=== PATIENT | female | born 1990 | race Two or more races ===

== ENCOUNTER 2022-10-05 09:47 | Inpatient (IN) | payer OTHER ==
[2022-10-05] MEDS ORDERED: OXYTOCIN 30 UNITS in 0.9% NS 30 UNIT/500 ML INFUS.BAG IVPB SCH ×2 (10:30→10:45)
[2022-10-05] MEDS ORDERED: OXYTOCIN 30 UNITS in 0.9% NS 30 UNIT/500 ML INFUS.BAG IVPB ONE (11:04)
[2022-10-05 11:13] LABS: BASO % 0.2 % (0-2.0); EOS % 1.4 % (0-4.5); HEMATOCRIT 35.5 % (32.4-45.2); HEMOGLOBIN 12.4 GM/dL (10.7-15.3); LYMPH % 26.9 % (8-40); MCH 31.5 pg (25.7-33.7); MCHC 34.8 g/dl (32.0-36.0); MEAN CELL VOLUME 90.4 fl (80-96); MEAN PLT VOLUME 6.6 fl (7.5-11.1); MONO % 5.9 % (3.8-10.2); NEUT % 65.6 % (42.8-82.8); PLATELET COUNT 290 10^3/uL (134-434); RBC 3.93 M/mm3 (3.60-5.2); RDW 13.6 % (11.6-15.6)
[2022-10-05] MEDS: ELECTROLYTE-148 SOLN 1,000 ML IV SCH ×2 (11:15→14:29)
[2022-10-05 11:18] LABS: INR 0.9 (0.83-1.09); PROTHROMBIN TIME (PATIENT) 10.4 SEC (9.7-13.0)
[2022-10-05 11:20] LABS: ACTIVATED PTT 24.6 SECONDS (25.2-36.5)
[2022-10-05 11:37] LABS: CALCIUM 9.2 mg/dL (8.5-10.1)
[2022-10-05 11:38] LABS: BLOOD UREA NITROGEN 9.6 mg/dL (7-18)
[2022-10-05 11:39] VITALS: BMI 25.4
[2022-10-05 11:41] LABS: CREATININE 0.5 mg/dL (0.55-1.3)
[2022-10-05 12:01] LABS: SYPHILIS W/ RPR CONF NON-REACTIVE (NONREACTIVE)
[2022-10-05 12:30] LABS: HIV INTERPRETATION NEGATIVE (NEGATIVE)
[2022-10-05] MEDS ORDERED: FENTANYL/BUPIVACAINE/NS/PF - PCEA - 50 ML DISP.SYRIN EP ONE ×3 (13:17→22:25)
[2022-10-05] MEDS ORDERED: NALOXONE HCL 0.4 MG/ML VIAL IVPUSH PRN (13:41)
[2022-10-05] MEDS ORDERED: FENTANYL CITRATE/PF 50 MCG/ML VIAL ONE (13:42)
[2022-10-05] MEDS: FENTANYL/BUPIVACAINE/NS/PF - PCEA - 50 ML DISP.SYRIN EP SCH ×3 (13:55→22:25)
[2022-10-06] MEDS ORDERED: FENTANYL/BUPIVACAINE/NS/PF - PCEA - 50 ML DISP.SYRIN EP ONE (01:57)
[2022-10-06] MEDS: FENTANYL/BUPIVACAINE/NS/PF - PCEA - 50 ML DISP.SYRIN EP SCH (02:00)
[2022-10-06] MEDS ORDERED: BUPIVACAINE HCL/PF 0.25% (2.5MG/ML) 10 ML VIAL ONE (03:33)
[2022-10-06] MEDS ORDERED: FENTANYL CITRATE/PF 50 MCG/ML VIAL ONE (03:33)
[2022-10-06] MEDS ORDERED: LIDOCAINE HCL 1% PRESERVATIVE FREE - 30ML VIAL ONE (05:22)
[2022-10-06] MEDS ORDERED: OXYTOCIN 20 UNITS in 0.9% NS 20 UNIT/1,000 ML INFUS.BAG IV ONE (05:22)
[2022-10-06] MEDS ORDERED: ACETAMINOPHEN 325 MG TABLET (FP) PO PRN (05:52)
[2022-10-06] MEDS ORDERED: METHYLERGONOVINE MALEATE 0.2 MG/1 ML AMP IM PRN (05:52)
[2022-10-06] MEDS ORDERED: WITCH HAZEL 50% (TUCKS) 40 PAD/JAR PAD TP PRN (05:52)
[2022-10-06] MEDS ORDERED: BENZOCAINE 28 GM HEMORRHOIDAL OINTMENT TP PRN (05:52)
[2022-10-06] MEDS ORDERED: BENZOCAINE 20% 57 GM BOTTLE TP PRN (05:52)
[2022-10-06] MEDS ORDERED: BISACODYL 10 MG SUPP.RECT RC PRN (05:52)
[2022-10-06] MEDS ORDERED: OXYTOCIN 20 UNITS in 0.9% NS 20 UNIT/1,000 ML INFUS.BAG IV SCH (06:00)
[2022-10-06] MEDS: PRENATAL VITAMINS W/ FOLIC ACID TABLET (FP) PO SCH (09:18)
[2022-10-06] MEDS: IBUPROFEN 600 MG TABLET (FP) PO PRN (09:18)
[2022-10-06 23:12] VITALS: RESP 18
[2022-10-07] MEDS: IBUPROFEN 600 MG TABLET (FP) PO PRN (05:59)
[2022-10-07 08:09] LABS: BASO % 0.3 % (0-2.0); EOS % 1.4 % (0-4.5); HEMATOCRIT 33.5 % (32.4-45.2); HEMOGLOBIN 11.9 GM/dL (10.7-15.3); LYMPH % 25.7 % (8-40); MCH 32.3 pg (25.7-33.7); MCHC 35.5 g/dl (32.0-36.0); MEAN CELL VOLUME 91.2 fl (80-96); MEAN PLT VOLUME 7.4 fl (7.5-11.1); MONO % 5.5 % (3.8-10.2); NEUT % 67.1 % (42.8-82.8); PLATELET COUNT 217 10^3/uL (134-434); RBC 3.67 M/mm3 (3.60-5.2); RDW 13.7 % (11.6-15.6); WHITE BLOOD COUNT 14.5 K/mm3 (4.0-10.0)
[2022-10-07] MEDS: PRENATAL VITAMINS W/ FOLIC ACID TABLET (FP) PO SCH (09:27)
[2022-10-07] MEDS ORDERED: SENNOSIDES/DOCUSATE COMBO (SENNA PLUS) TABLET (UD) PO PRN (22:00)
[2022-10-08] MEDS: PRENATAL VITAMINS W/ FOLIC ACID TABLET (FP) PO SCH (09:28)
[2022-10-08 09:33] VITALS: BP 100/65; PULSE 86; TEMP 97.9
== END 2022-10-08 14:20 | disposition home or self-care (01) | DRG 560 ==
LOC: JLDR 09:47 → J3W 10-06 08:04
PROVIDERS: ADMIT Obstetrics & Gynecology; ATTEND Obstetrics & Gynecology
PROC: 0HQ9XZZ Repair Perineum Skin, External Approach (ICD-10-PCS; principal; 2022-10-06)
PROC: 10E0XZZ Delivery of Products of Conception, External Approach (ICD-10-PCS; 2022-10-06)
DX: O41.03X0 Oligohydramnios, third trimester, not applicable or unspecified (principal); O70.0 First degree perineal laceration during delivery; Z3A.41 41 weeks gestation of pregnancy; Z37.0 Single live birth
CPT/HCPCS: 36415; 80048; 85025; 85610; 85730; 86780; 86850; 86900; 86901; 87389; C9803-CS; U0003; U0005